=== PATIENT | female | born 1980 | race Caucasian/White ===

== ENCOUNTER → 2018-04-21 | Outpatient (CLI) | payer OTHER ==
--- NOTE | 2018-04-22 07:37 | EXE ---
[place] [address] STRESS ECHOCARDIOGRAM Name: FRANKIE YEPEZ Room: [facility]#: [id number] Admission: 04/21/18 Attend Phys: Boris Banks, Discharge: Date of : 76 Date of Service: 04/22/18 0736 Report #: [id number] THIS REPORT FOR: //name// APPROVED REPORT Study performed: 04/21/2018 11:16:07 Exam: Stress Echocardiogram Indication: Palpitations Patient Location: Out-Patient Stress Nurse: Taylor Chapman RN Supervising Physician: Tony Copeland MD Ht: 5 ft 7 in HR: 83 bpm BP: 117/59 mmHg Medical History Cardiac Risk Factors: FHX of CAD, Smoking Procedure The patient underwent an Exercise Stress Test using the Dariel Protocol. Blood pressure, heart rate, and EKG were monitored. An Echocardiogram was performed by dental equipment technician in four stages in quad fashion. At peak stress, four selected images were obtained and placed side by side with resting images for comparison. Echo Enhancing Agent Indication: Endocardial border delineation Agent(s) / Amount(s) Used: Optison cc Stress Test Details Stress Test: Exercise stress testing was performed using a Dariel protocol. HR Resting HR: 83 bpm Max Heart Rate (APMHR): 181 bpm Max HR Achieved: 164 bpm Target HR (85% APMHR): 153 bpm % of APMHR: 90 Recovery HR: 97 bpm HR response to stress: Normal HR response to stress BP Resting BP: 117/59 mmHg Max BP: 193/53 mmHg Recovery BP: 128/57 [place] [address] STRESS ECHOCARDIOGRAM Name: FRANKIE YEPEZ Room: [facility]#: [id number] Admission: 04/21/18 Attend Phys: Boris Banks, Discharge: Date of : 76 Date of Service: 04/22/18 0736 Report #: [id number] Resting ECG: Sinus Rhythm, normal EKG Stress ECG: Sinus Tachycardia ST Change: None Arrhythmia: None Recovery ECG: Sinus Rhythm, normal EKG Recovery ST Change: None Recovery Arrhythmia: None Clinical Reason for Termination: Maximal effort Exercise duration: 4 min 50 sec Highest Stage Achieved: Stage 2: 2.5 mph at 12% grade. Exercise capacity: 6.8 METs Overall Exercise Capacity for Age: Poor The patient tolerated standard Dariel protocol exercise without significant cardiac symptoms. Stress ECG Conclusion The baseline 12-lead EKG shows sinus rhythm without significant ST or T wave abnormality. EKGs obtained during and post exercise showed sinus rhythm and sinus tachycardia with no significant ST or T wave changes when compared to baseline. There were no stress-induced arrhythmias. Pre-Stress Echo The resting Echocardiogram showed normal left ventricular contractility with an estimated Ejection Fraction of about 55-60%. Post-Stress Echo The stress Echocardiogram showed normal left ventricular contractility with an estimated Ejection Fraction of about >70%. Clinical No clinical or ECG evidence for ischemia. Conclusion Clinical Response: Non-ischemic Exercise Capacity: Average Stress ECG Response: Non-ischemic Stress Echo Images: Non-ischemic The left ventricle is normal in size and wall thickness in both the rest and stress images. Other Information Study Quality: [place] [address] STRESS ECHOCARDIOGRAM Name: FRANKIE YEPEZ Room: [facility]#: [id number] Admission: 04/21/18 Attend Phys: Boris Banks, Discharge: Date of : 76 Date of Service: 04/22/18735 Report #: [id number] <Conclusion> The left ventricle is normal in size and wall thickness in both the rest and stress images. <ELECTRONICALLY SIGNED> By: Tony Copeland MD, FACC 04/22/18735 5 5 Tony Copeland MD, FACC /INF
== END ==
LOC: M.CRD 10:43
DX: R00.2 Palpitations (principal)

== ENCOUNTER → 2018-07-15 | Outpatient (CLI) | payer OTHER | LOC: M.NUC 07:03 | DX: R68.81 Early satiety (principal) ==